=== PATIENT | female | born 1970 | race American Indian/Alaskan Native ===

== ENCOUNTER 2017-03-19 13:54 | Outpatient (CLI) | payer OTHER ==
--- NOTE | 2017-03-19 14:37 | XRay Report ---
XRAY CHEST TWO VIEWS: 03/19/17 13:54:00 CLINICAL: Asthma COMPARISON: None FINDINGS: Normal heart and pulmonary vasculature. The lungs are normally expanded and clear.Mild degenerative change of the spine. IMPRESSION: Normalexcept for mild degenerative change in the spine.
== END 2017-03-19 13:55 | disposition home or self-care (01) ==
LOC: SPVIMAG 13:54
PROVIDERS: ATTEND Internal Medicine
DX: J45.998 Other asthma (principal); M47.894 Other spondylosis, thoracic region
CPT/HCPCS: 71020